=== PATIENT | male | born 1980 | race Caucasian/White ===

== ENCOUNTER → 2024-06-27 | Day surgery (SDC) | payer MEDICARE, MEDICAID ==
[~2024-06-27] MED LIST: Iohexol 300 - 10 ML VIAL IV ONE; methylPREDNISolone acetate 80 MG/ML VIAL IJ ONE
== END ==
LOC: MSO 09:22
DX: M53.3 Sacrococcygeal disorders, not elsewhere classified (principal); M54.50 Low back pain, unspecified; M53.88 Other specified dorsopathies, sacral and sacrococcygeal region
CPT/HCPCS: J0665; J1010; Q9967